=== PATIENT | female | born 1970 | race American Indian/Alaskan Native ===

== ENCOUNTER 2020-12-21 19:20 | Emergency (ER) | payer MEDICARE ==
[2020-12-21 20:10] VITALS: BP 146/90
[2020-12-21] MEDS ORDERED: ALBUTEROL 2.5 MG/3 ML NEBU IH ONE (20:15)
[2020-12-21] MEDS ORDERED: IPRATROPIUM 0.02% NEBU 2.5 ML IH ONE (20:15)
[2020-12-21] MEDS ORDERED: ACETAMINOPHEN 325 MG TAB PO STA (20:16)
--- NOTE | 2020-12-21 20:17 | Event Note ---
Date: 12/21/20 EMS documentation not available at time of chart dictation Verbal report received from emergency medical services. Patient is a 50-year-old female with a history of COPD, not on home oxygen, up-to-date with COVID-19 vaccination status, who was brought to the hospital by EMS as a probable COPD exacerbation. Patient complains of 4 days of cough, chest tightness, wheezing, mucus production. She denies travel, surgery, immobilization, DVT and pulmonary embolism risk factors. EMS gave steroids, magnesium, and albuterol in the field. Patient still wheezing. Patient states that she feels "30% better." This is likely a COPD exacerbation. She is wheezing on my examination. EMS to administer an additional 10 mg of albuterol. Have also ordered Atrovent and acetaminophen. Obtain appropriate laboratory studies, chest x-ray and EKG. Full history and physical to follow. Vital Signs 12/21/20 20:06 Temperature 98.4 F Pulse Rate 110 H Respiratory 22 Rate Blood Pressure 146/90 [Left] O2 Sat by Pulse 98 Oximetry
--- NOTE | 2020-12-21 20:24 | Emergency Department Report ---
ED General Adult HPI - General Chief complaint: Dyspnea/Respdistress Stated complaint: SHORTNESS OF BREATH PUI?: No Time Seen by Provider: 12/21/20 20:23 Source: patient, EMS (Verbal report received from emergency medical services. EMS documentation not available at time of chart dictation ), RN notes reviewed Mode of arrival: Stretcher Limitations: No Limitations - History of Present Illness Initial comments: The patient is a 50-year-old female. She has not noticed myself previously. She reports a history of COPD. She presents to the ER today with a complaint of cough, wheezing, chest tightness and shortness of breath. Symptoms are present for 3 to 4 days. She reports this episode is similar to prior episodes of COPD exacerbation. She is not oxygen at home. She has received her COVID-19 vaccination. Patient denies travel, surgery, immobilization, DVT/PE risk factors. EMS gave the patient albuterol, steroids and magnesium prior to my personal evaluation. Initially in the ER, still found to be wheezing, and receives additional albuterol. She endorses improvement in symptoms. -: Gradual, days(s) Severity scale (0 -10): 0 Consistency: constant Improves with: medication, rest Worsens with: movement - Related Data Previous Rx's Medication Instructions Recorded Last Taken Type Acetaminophen [Non-Aspirin Extra 500 mg PO Q6HR PRN #30 tablet 12/21/20 Unknown Rx Strength] Albuterol Sulfate [Albuterol 0.63% 0.63 mg IH Q4HR PRN #2 ml 12/21/20 Unknown Rx NEBS] Albuterol Sulfate [Proair 90 mcg IH Q4HR PRN #2 aer.pow.ba 12/21/20 Unknown Rx Respiclick] DOXYCYCLINE Hyclate [Vibramycin] 100 mg PO Q12HR #10 capsule 12/21/20 Unknown Rx Ipratropium (Nf) [Atrovent] 2 puff IH Q6HR PRN #1 inha 12/21/20 Unknown Rx Ipratropium [Atrovent NEB] 0.5 mg IH Q4HR #2 ml 12/21/20 Unknown Rx predniSONE [Deltasone] 40 mg PO QDAY #8 tab 12/21/20 Unknown Rx Allergies Allergy/AdvReac Type Severity Reaction Status Date / Time ciprofloxacin [From Cipro] AdvReac Hives Verified 12/21/20 20:11 ED Review of Systems ROS: Stated complaint: SHORTNESS OF BREATH Other details as noted in HPI Constitutional: other (Denies loss of taste and smell). denies: fever ENT: congestion Respiratory: cough, shortness of breath, SOB with exertion, SOB at rest, wheezing Cardiovascular: denies: syncope Gastrointestinal: denies: abdominal pain Musculoskeletal: denies: back pain Neurological: denies: weakness Hematological/Lymphatic: denies: easy bleeding ED Past Medical Hx - Past Medical History Hx COPD: Yes - Surgical History Past Surgical History?: Yes Additional Surgical History: Tummy tuck - Social History Smoking Status: Current Every Day Smoker Substance Use Type: None - Medications Home Medications: Home Medications Medication Instructions Recorded Confirmed Last Taken Type Acetaminophen [Non-Aspirin Extra 500 mg PO Q6HR PRN #30 tablet 12/21/20 Unknown Rx Strength] Albuterol Sulfate [Albuterol 0.63% 0.63 mg IH Q4HR PRN #2 ml 12/21/20 Unknown Rx NEBS] Albuterol Sulfate [Proair 90 mcg IH Q4HR PRN #2 aer.pow.ba 12/21/20 Unknown Rx Respiclick] DOXYCYCLINE Hyclate [Vibramycin] 100 mg PO Q12HR #10 capsule 12/21/20 Unknown Rx Ipratropium (Nf) [Atrovent] 2 puff IH Q6HR PRN #1 inha 12/21/20 Unknown Rx Ipratropium [Atrovent NEB] 0.5 mg IH Q4HR #2 ml 12/21/20 Unknown Rx predniSONE [Deltasone] 40 mg PO QDAY #8 tab 12/21/20 Unknown Rx ED Physical Exam - General Limitations: No Limitations General appearance: alert, anxious, obese - Head Head exam: Present: atraumatic, normocephalic - Eye Eye exam: Present: normal appearance, EOMI. Absent: nystagmus - ENT ENT exam: Present: normal exam, normal orophraynx, mucous membranes moist, normal external ear exam - Neck Neck exam: Present: normal inspection, full ROM. Absent: tenderness, meningismus - Respiratory Respiratory exam: Present: respiratory distress, wheezes. Absent: stridor - Cardiovascular Cardiovascular Exam: Present: regular rate, normal rhythm, normal heart sounds. Absent: bradycardia, tachycardia, irregular rhythm, systolic murmur, diastolic murmur, rubs, gallop - GI/Abdominal GI/Abdominal exam: Present: soft. Absent: distended, tenderness, guarding, rebound, rigid, pulsatile mass - Extremities Exam Extremities exam: Present: normal inspection, full ROM, other (2+ pulses noted in the bilateral upper and lower extremities. There is no palpable cord. negative Homans sign. Muscular compartments are soft. The pelvis is stable.). Absent: pedal edema, calf tenderness - Back Exam Back exam: Present: normal inspection, full ROM. Absent: tenderness, CVA tenderness (R), CVA tenderness (L), paraspinal tenderness, vertebral tenderness - Neurological Exam Neurological exam: Present: alert, oriented X3, other (No facial droop. Tongue midline. Extraocular movements intact bilaterally. Facial sensation intact to light touch in V1, V2, V3 distribution bilaterally. 5 and a 5 strength in 4 extremities. Sensation intact to light touch in 4 extremities.). Absent: motor sensory deficit - Psychiatric Psychiatric exam: Present: anxious - Skin Skin exam: Present: warm, dry, intact, normal color. Absent: rash ED Course Vital Signs 12/21/20 20:06 Temperature 98.4 F Pulse Rate 110 H Respiratory 22 Rate Blood Pressure 146/90 [Left] O2 Sat by Pulse 98 Oximetry - Reevaluation(s) Reevaluation #1: 12/21/20 22:07 Differential diagnosis, including but not limited to: Bronchitis, costochondritis, COPD exacerbation, pneumonia Assessment and plan: 50-year-old female, with resolved tachycardia, who at the moment, is not tachycardic, tachypneic or hypoxic, who denies DVT and pulmonary embolism risk factors, who is low risk by Wells criteria for pulmonary embolism, with a few days of cough, wheezing, chest tightness, shortness of breath, most likely COPD exacerbation. Symptoms present for more than 8 hours, and for a few days; as per the [employer] clinical policy, acute myocardial infarction is ruled out with 1 set of troponin/cardiac enzymes. Laboratory studies unremarkable, with the exception of leukocytosis, which I suspect is a stress reaction. Chest x-ray clear to my interpretation. Patient receiving additional albuterol and Atrovent at this time. She is given acetaminophen for her physical pain. I will reassess after she has completed her breathing therapies. Hopefully, the patient can be discharged with outpatient follow-up. She reports that she is COVID-19 vaccinated. 12/21/20 22:46 Patient reassessed. Work of breathing improved. Laboratory studies reviewed and appreciated. Has minimal rhonchi at this time. Tachycardia resolved, saturating 99% on room air, heart rate 98 to 99 bpm. This is a COPD exacerbation most likely. Patient suitable for outpatient follow-up. Discussed this with the patient. She articulated understanding. All questions answered. ED Medical Decision Making - Lab Data Result diagrams: 12/21/20 20:55 12/21/20 20:55 Vital Signs 12/21/20 20:06 Temperature 98.4 F Pulse Rate 110 H Respiratory 22 Rate Blood Pressure 146/90 [Left] O2 Sat by Pulse 98 Oximetry Lab Results 12/21/20 12/21/20 12/21/20 Range/Units 20:55 20:55 20:55 WBC 15.9 H (4.5-11.0) K/mm3 RBC 5.55 H (3.65-5.03) M/mm3 Hgb 14.5 H (10.1-14.3) gm/dl Hct 45.8 H (30.3-42.9) % MCV 83 (79-97) fl MCH 26 L (28-32) pg MCHC 32 (30-34) % RDW 17.5 H (13.2-15.2) % Plt Count 334 (140-440) K/mm3 Lymph % (Auto) 27.4 (13.4-35.0) % [place] % (Auto) 2.4 (0.0-7.3) % Eos % (Auto) 0.4 (0.0-4.3) % Baso % (Auto) 0.7 (0.0-1.8) % Lymph # (Auto) 4.4 (1.2-5.4) K/mm3 [place] # (Auto) 0.4 (0.0-0.8) K/mm3 Eos # (Auto) 0.1 (0.0-0.4) K/mm3 Baso # (Auto) 0.1 (0.0-0.1) K/mm3 Seg Neutrophils % 69.1 (40.0-70.0) % Seg Neutrophils # 11.0 H (1.8-7.7) K/mm3 PT 13.4 (12.2-14.9) Sec. INR 0.92 (0.87-1.13) Sodium 138 (137-145) mmol/L Potassium 4.2 (3.6-5.0) mmol/L Chloride 100.0 (98-107) mmol/L Carbon Dioxide 21 L (22-30) mmol/L Anion Gap 21 mmol/L BUN 14 (7-17) mg/dL Creatinine 0.7 (0.6-1.2) mg/dL Estimated GFR > 60 ml/min BUN/Creatinine Ratio 20 % Glucose 166 H (65-100) mg/dL Calcium 10.0 (8.4-10.2) mg/dL Magnesium 2.50 H (1.7-2.3) mg/dL Troponin T < 0.010 (0.00-0.029) ng/mL - EKG Data -: EKG Interpreted by Tx EKG shows normal: sinus rhythm - EKG Data 12/21/20 22:06 EKG is interpreted at 20: 36 Sinus rhythm, rate 96 bpm. Normal axis, normal P wave axis, normal intervals, unremarkable EKG, this is not a STEMI. - Radiology Data Radiology results: pending, image reviewed CHEST 2 VIEWS INDICATION / CLINICAL INFORMATION: Dyspnea. COMPARISON: None available. FINDINGS: SUPPORT DEVICES: None. HEART / MEDIASTINUM: No significant abnormality. LUNGS / PLEURA: Mild interstitial opacities. No focal airspace disease. No pneumothorax. ADDITIONAL FINDINGS: No significant additional findings. IMPRESSION: 1. Mild interstitial opacities can be seen with pulmonary edema and/or small airways disease. Signer Name: Luís Rocha MD Signed: 12/21/2020 9:38 PM Workstation Name: [id number] Critical Care Time: Yes Critical care time in (mins) excluding proc time.: 35 Critical care attestation.: If time is entered above; I have spent that time in minutes in the direct care of this critically ill patient, excluding procedure time. ED Disposition Clinical Impression: COPD exacerbation Disposition: 01 HOME / SELF CARE / HOMELESS Is pt being admited?: No Does the pt Need Aspirin: No Condition: Good Instructions: Chronic Obstructive Pulmonary Disease, Chronic Obstructive Pulmonary Disease (ED) Additional Instructions: Recommend that patient discontinue consumption of tobacco and smoke products. Please take the cough medicine, pain medication, breathing medicine, and antibiotics as directed. Please follow-up with the customer sales specialist, such as Dr. Michele, within the next week. Alternatively, please follow-up with a primary care doctor within the next week. Please have a primary care doctor or immigration case manager contact the medical records department, to obtain copies of laboratory studies, and radiology studies. Please return to the emergency room right away with new pain, worsened pain, migration of pain, projectile vomiting, change in mental status, confusion, inability to tolerate liquid feeds, new, worsened or different symptoms not present on the initial emergency room evaluation Prescriptions: Albuterol Sulfate [Albuterol 0.63% NEBS] 0.63 mg IH Q4HR PRN #2 ml PRN Reason: Wheezing Ipratropium (Nf) [Atrovent] 2 puff IH Q6HR PRN #1 inha PRN Reason: Wheezing Ipratropium [Atrovent NEB] 0.5 mg IH Q4HR #2 ml predniSONE [Deltasone] 40 mg PO QDAY #8 tab Acetaminophen [Non-Aspirin Extra Strength] 500 mg PO Q6HR PRN #30 tablet PRN Reason: Pain , Severe (7-10) Albuterol Sulfate [Proair Respiclick] 90 mcg IH Q4HR PRN #2 aer.pow.ba PRN Reason: Wheezing DOXYCYCLINE Hyclate [Vibramycin] 100 mg PO Q12HR #10 capsule Referrals: JOANN MICHELE MD [Staff Physician] - 3-5 Days TERRIE CARLSON MD [Staff Physician] - 3-5 Days [facility] [Outside] - 3-5 Days Forms: Work/School Release Form(ED)
[2020-12-21 21:21] LABS: Basophils # (Auto) 0.1 K/mm3 (0.0-0.1); Basophils % (Auto) 0.7 % (0.0-1.8); Eosinophils # (Auto) 0.1 K/mm3 (0.0-0.4); Eosinophils % (Auto) 0.4 % (0.0-4.3); Hematocrit 45.8 % (30.3-42.9); Hemoglobin 14.5 gm/dl (10.1-14.3); Lymphocytes # (Auto) 4.4 K/mm3 (1.2-5.4); Lymphocytes % (Auto) 27.4 % (13.4-35.0); Mean Corpuscular HGB Conc 32 % (30-34); Mean Corpuscular Volume 83 fl (79-97); Monocytes # (Auto) 0.4 K/mm3 (0.0-0.8); Monocytes % (Auto) 2.4 % (0.0-7.3); Platelet Count 334 K/mm3 (140-440); Red Blood Count 5.55 M/mm3 (3.65-5.03); Red Cell Distribution Width 17.5 % (13.2-15.2)
[2020-12-21 21:28] LABS: INR 0.92 (0.87-1.13)
[2020-12-21 21:42] LABS: Blood Urea Nitrogen 14 mg/dL (7-17); Hemolysis Index 8
[2020-12-21 21:45] LABS: BUN/Creatinine Ratio 20
--- NOTE | 2020-12-21 22:43 | XRay Report ---
CHEST 2 VIEWS INDICATION / CLINICAL INFORMATION: Dyspnea. COMPARISON: None available. FINDINGS: SUPPORT DEVICES: None. HEART / MEDIASTINUM: No significant abnormality. LUNGS / PLEURA: Mild interstitial opacities. No focal airspace disease. No pneumothorax. ADDITIONAL FINDINGS: No significant additional findings. IMPRESSION: 1. Mild interstitial opacities can be seen with pulmonary edema and/or small airways disease. Signer Name: Luís Rocha MD Signed: 12/21/2020 10:38 PM Workstation Name: [id number]
[2020-12-21] MEDS ORDERED: DOXYCYCLINE 100 MG CAP PO ONE (22:46)
--- NOTE | 2020-12-22 11:25 | Electrocardiograph Report ---
[facility] Test Date: 2020-12-21 Test Time: 20:36:17 Pat Name: CINDA CALDERON Department: Room: Gender: F Ship E[employer]: : [id number] Requested By: MUNA PAYAN Order Number: [id number] Reading MD: Devon Casanova Measurements Intervals [place] Rate: 96 P: 68 CO: 153 QRS: 40 QRSD: 79 T: 30 QT: 342 QTc: 433 Interpretive Statements Sinus rhythm No previous ECG available for comparison Electronically Signed On 12-22-2020 11:24:33 EST by Devon Casanova
== END 2020-12-21 23:05 | disposition home or self-care (01) ==
LOC: ED 19:20
DX: J44.1 Chronic obstructive pulmonary disease with (acute) exacerbation (principal); Z98.890 Other specified postprocedural states; F17.200 Nicotine dependence, unspecified, uncomplicated; Z88.1 Allergy status to other antibiotic agents
CPT/HCPCS: 36415; 71046; 80048; 83735; 84484; 85025; 85610; 93005; 99284; 99291